=== PATIENT | female | born 1995 | race Caucasian/White ===

== ENCOUNTER 2018-03-16 12:26 | Observation (INO) ==
--- NOTE | 2018-03-16 13:32 | Emergency Department Note ---
Disposition Clinical Impression: Vaginal bleeding Post-operative complication Qualifiers: Surgical complication system/body Area: genitourinary Surgical complication type: unspecified Procedure type: genitourinary Qualified Code(s): N99.89 - Other postprocedural complications and disorders of genitourinary system Disposition: Admitted As Inpatient Condition: Good Time of Disposition: 13:31 General Adult HPI - General Chief complaint: ED Urogenital-Female Stated complaint: Vaginal bleeding S/P tubal ligation Time Seen by Provider: 03/16/18 13:03 Source: patient Limitations: no limitations - History of Present Illness Pain Scale: 0 - Related Data Home Medications Medication Instructions Recorded Confirmed ARIPiprazole [Abilify] 2 mg PO DAILY 03/08/18 03/16/18 FLUoxetine HCl [PROzac] 20 mg PO DAILY 03/08/18 03/16/18 Allergies Allergy/AdvReac Type Severity Reaction Status Date / Time No Known Allergies Allergy Verified 03/16/18 12:37 Past Medical History - Past Medical History Medical history: Reports: other Surgical history: Reports: other Psychiatric history: Reports: no psych history - Social History Smoking Status: Current every day smoker Smokeless Tobacco Status: No Alcohol use: Reports: none Drug use: Reports: none Physical Exam - General Limitations: no limitations General appearance: alert, in no apparent distress Course - Consultations Consultation #1: Dr. Shafer present in the ED and accepts patinet to his service. Would like liberty started on methoxyprg now Time: 13:31 Vital Signs Temperature 98.3 F 03/16/18 12:33 Pulse Rate 101 03/16/18 12:33 Respiratory Rate 16 03/16/18 12:33 Blood Pressure 126/88 03/16/18 12:33 O2 Sat by Pulse Oximetry 97 03/16/18 12:33 Temperature 98.3 F 03/16/18 12:33 Pulse Rate 78 03/16/18 13:44 Respiratory Rate 14 03/16/18 13:44 Blood Pressure 116/75 03/16/18 13:44 O2 Sat by Pulse Oximetry 100 03/16/18 13:44 Oxygen Delivery Oxygen Delivery Room Air Medical Decision Making - Lab Data Result diagrams: 03/16/18 13:52 Lab Results 03/16/18 Range/Units 13:52 WBC 8.3 (4.3-11.1) K/mcL RBC 4.37 (3.82-4.97) M/mcL Hgb 13.3 (11.5-15.4) g/dL Hct 39.4 (35.3-44.9) % MCV 90.2 (83.0-100.0) fL MCH 30.4 (28.0-33.3) pg MCHC 33.8 (31.6-35.5) g/dL RDW 12.9 (11.5-14.5) % Plt Count 203 (140-400) K/mcL MPV 11.2 (9.4-12.4) fL Immature Gran % 0.2 (0-4) % Seg Neutrophils % 61.8 % Lymphocytes % 25.1 % Monocytes % 9.2 % Eosinophils % 3.2 % Basophils % 0.5 % Neutrophils # 5.1 (1.6-8.9) K/mcL Lymphocytes # 2.1 (0.6-4.6) K/mcL Monocytes # 0.8 (0.0-1.3) K/mcL Eosinophils # 0.3 (0.0-0.6) K/mcL Basophils # 0.0 (0.0-0.2) K/mcL Attestation Statement - Attestation Attestation: I examined this patient and my medical decision-making was reviewed with the Resident Physician. I agree with the documented findings, disposition and treatment plan as described except to the extent set forth below. 22 year old female presnts to the ED withc omplaints of vagina bleeding s/p tubal ligation per Dr. Shafer and she was being evalauted at his office and he reccomended that she cometo the ED for admission to the hospital under his service. HE was at bedside during our evaluation and he would like baseline labs and methoxyprg given for therapy. I have discussed with patient the reccs for admission adn they are agreeable to plan. She has sstable vitals and is non- toxic
--- NOTE | 2018-03-16 13:52 | Emergency Department Note ---
Disposition Clinical Impression: Vaginal bleeding Post-operative complication Qualifiers: Surgical complication system/body Area: genitourinary Surgical complication type: unspecified Procedure type: genitourinary Qualified Code(s): N99.89 - Other postprocedural complications and disorders of genitourinary system Disposition: Admitted As Inpatient Condition: Good Referrals: Mona Andino [employer] [Primary Care Provider] - Forms: ED Satisfaction Letter Time of Disposition: 13:53 Female Urogenital HPI - General Chief complaint: ED Urogenital-Female Stated complaint: Vaginal bleeding S/P tubal ligation Time Seen by Provider: 03/16/18 13:03 Source: patient Limitations: no limitations Nursing Notes Reviewed: Yes Vital Signs Reviewed: Yes - History of Present Illness HPI Narrative: 22-year-old female presented to the emergency department for vaginal bleeding. Patient one week ago had tubal ligation done by MEDICAL MANAGER here. She called the office and was told to come emergency department for evaluation. Patient stated that she filled 1 pad and 10 minutes of any tampon in 5 minutes and came to the emergency department. Started all of a sudden. Patient's I have any abdominal pain any nausea vomiting or any fevers. - Related Data Home Medications Medication Instructions Recorded Confirmed ARIPiprazole [Abilify] 2 mg PO DAILY 03/08/18 03/16/18 FLUoxetine HCl [PROzac] 20 mg PO DAILY 03/08/18 03/16/18 Allergies Allergy/AdvReac Type Severity Reaction Status Date / Time No Known Allergies Allergy Verified 03/16/18 12:37 All systems ED: reviewed and negative except as stated. Review of Systems: As Per HPI Constitutional: Denies: fever, chills, weakness, weight change Eyes: Denies: eye pain, eye discharge, vision change ENT ED: Denies: ear pain, throat pain, dental pain, hearing loss, epistaxis, congestion, dysphagia Cardiovascular: Reports: as per HPI. Denies: chest pain, palpitations Respiratory: Denies: cough, dyspnea, wheezes, hemoptysis, stridor Gastrointestinal: Denies: abdominal pain, nausea, vomiting, diarrhea, constipation, hematemesis, melena, hematochezia Genitourinary: Denies: dysuria, frequency, hematuria, discharge Musculoskeletal: Denies: back pain, neck pain, arthralgia, myalgia Integumentary: Denies: rash, abrasion, lesions Neurological: Denies: headache, weakness, numbness, paresthesias, confusion, abnormal gait, vertigo Psychiatric: Denies: anxiety, depression, suicidal thoughts, homicidal thoughts , auditory hallucinations, visual hallucinations Endocrine: Denies: fatigue Hematological/Lymphatic: Denies: easy bleeding, easy bruising Allergic/Immunologic: Denies: facial swelling, urticaria Past Medical History - Past Medical History Attestation: Yes The following information was validated with the patient. Source: patient Medical history: Reports: other Surgical history: Reports: other Psychiatric history: Reports: no psych history - Social History Smoking Status: Current every day smoker Smokeless Tobacco Status: No Alcohol use: Reports: none Drug use: Reports: none Physical Exam - General Limitations: no limitations General appearance: alert, in no apparent distress - Head Head exam: atraumatic, normocephalic, normal inspection - Eye Eye exam: Present: normal appearance, PERRL, EOMI - ENT ENT exam: normal exam, normal oropharynx, mucous membranes moist - Neck Neck exam: Present: normal inspection, full ROM, trachea midline - Chest Chest inspection: Present: normal inspection, symmetric chest wall rise - Respiratory Respiratory exam: Present: normal lung sounds bilaterally - Cardiovascular Cardiovascular exam: Present: regular rate, normal rhythm, normal heart sounds - Abdominal Exam Abdominal exam: Present: soft, Non-Tender. Absent: tenderness, distention, guarding, rebound, rigidity - Female External Exam: Present: other ( exam done by on-call MEDICAL MANAGER Dr. torres) - Back Exam Back exam: Present: normal inspection, full ROM. Absent: tenderness - Neurological Exam Neurological exam: Present: alert, oriented X3 - Skin Skin exam: Present: warm, dry, intact, normal color Course Course Narrative: Will get CBC and basic labs will consult MEDICAL MANAGER for recommendations. Vital Signs Temperature 98.3 F 03/16/18 12:33 Pulse Rate 101 03/16/18 12:33 Respiratory Rate 16 03/16/18 12:33 Blood Pressure 126/88 03/16/18 12:33 O2 Sat by Pulse Oximetry 97 03/16/18 12:33 Temperature 98.3 F 03/16/18 12:33 Pulse Rate 78 03/16/18 13:44 Respiratory Rate 14 03/16/18 13:44 Blood Pressure 116/75 03/16/18 13:44 O2 Sat by Pulse Oximetry 100 03/16/18 13:44 Oxygen Delivery Oxygen Delivery Room Air Urogenital-Female - MDM Narrative Medical decision making narrative: Spoke with on-call MEDICAL MANAGER at approximately 1345 who came to bedside and did do a vaginal exam and stated he would admit the patient to their service. He does want a basic labs done and said they can go to the opiate MEDICAL MANAGER service. Patient is stable at this time. She is still currently bleeding but stable. - Medical Records Medical records reviewed: Yes I reviewed the patient's medical records. - Lab Data Lab results reviewed: Yes I reviewed the patient's lab results.
[2018-03-16 14:11] LABS: Basophils % 0.5 %; Eosinophils # 0.3 K/mcL (0.0-0.6); Eosinophils % 3.2 %; Hematocrit 39.4 % (35.3-44.9); Hemoglobin 13.3 g/dL (11.5-15.4); Immature Granulocytes % 0.2 % (0-4); Lymphocytes # 2.1 K/mcL (0.6-4.6); Lymphocytes % 25.1 %; Mean Corpuscular HGB Conc 33.8 g/dL (31.6-35.5); Mean Corpuscular Hemoglobin 30.4 pg (28.0-33.3); Mean Corpuscular Volume 90.2 fL (83.0-100.0); Mean Platelet Volume 11.2 fL (9.4-12.4); Monocytes # 0.8 K/mcL (0.0-1.3); Monocytes % 9.2 %; Neutrophils # 5.1 K/mcL (1.6-8.9); Platelet Count 203 K/mcL (140-400); Red Blood Count 4.37 M/mcL (3.82-4.97); Red Cell Distribution Width 12.9 % (11.5-14.5); Segmented Neutrophils % 61.8 %
[2018-03-16 14:20] LABS: INR 1.2; Prothrombin Time 13.7 Seconds (9.4-12.1)
[2018-03-16 14:23] LABS: Activated Partial Thrombo Time 32.7 Seconds (26.0-36.0)
--- NOTE | 2018-03-16 14:25 | OB/GYN Consult Note ---
Date of Encounter: 03/23/18 Time of Encounter: 14:24 Assessment and Plan (1) Vaginal bleeding Status: Acute pelvic exam revealed approx 30cc of clot in the vagina, clots were expelled and there was no active bleeding noted from the cervix, I will start the patient on Medroxyprogesterone 20mg TID and admit her for observation, her vitals and labs are stable, no surgical interventions needed at this time. History of Present Illness Consult date: 03/16/18 Requesting physician: Veronica Bansal Reason for consult: menorrhagia Chief complaint: vaginal bleeding History of present illness: Mrs Ferreira is a 22 y/o who presents to the ED with vaginal bleeding. She is s/p bilateral salpingectomy and endometrial abaltion 1 week ago. She reports vaginal bleeding that started early this AM when she got up. She reports changing multiple pads withing the last few hrs. She called the office and was told to come to the ED. SHe does not report CP, SOB, dizziness, pelvic pain, urologic or vaginal symptoms. There were no complications with her procedure. Past Med Surg Social Fam HX - Past Medical History Medical history: other Additional medical history: depression. PT STATES SHE STARTED SMOKING CIGARETTES @19 YRS OF AGE Psychiatric history: no psych history - Past Surgical History Surgical History: other Additional surgical history: tonsils-age 3, diagnostic laparoscopy iud removal- 2017. 03/08/18 DX LAP DILCIA SALPINGECTOMY/HYSTEROSCOPY/D&C/ENDOMETRIAL ALBATION, Removal of ovarian tubes. - Social History Smoking Status: Current every day smoker Smokeless Tobacco Status: No Alcohol use: none Drug use: none Medications and Allergies ARIPiprazole [Abilify] 2 mg PO DAILY 03/08/18 [History] FLUoxetine HCl [PROzac] 20 mg PO DAILY 03/08/18 [History] Ciprofloxacin [Cipro] 500 mg PO BID #14 tablet 03/22/18 [Rx] Sulfamethoxazole/Trimeth DS [Bactrim DS] 1 each PO BID #14 tablet 03/22/18 [Rx] 3 Allergy/AdvReac Type Severity Reaction Status Date / Time No Known Allergies Allergy Verified 03/22/18 09:27 Review of Systems All Systems: reviewed and no additional remarkable complaints except as stated Exam - Vital Signs Vital signs: Initial Vital Signs Temp Pulse Resp BP Pulse Ox 98.3 F 101 16 126/88 97 03/16/18 12:33 03/16/18 12:33 03/16/18 12:33 03/16/18 12:33 03/16/18 12:33 - Constitutional Constitutional: thin - HEENT HEENT: PERRL - Neck Neck exam: full ROM - Lungs Respiratory exam: CTAB - Cardiovascular Cardiovascular exam: RRR - Extremities Extremities exam: normal inspection Results Result Diagrams: 03/16/18 13:52 03/16/18 13:52 Abnormal lab results PT 13.7 Seconds (9.4-12.1) H 03/16/18 13:52 All other labs normal. Consult Discharge Plan - Plan Referrals: Mona Andino, [employer] [Primary Care Provider] -
[2018-03-16 14:30] LABS: Alanine Aminotransferase 11 Units/L (7-52); Albumin 4.5 g/dL (3.5-5.7); Albumin/Globulin Ratio 1.8 (1.1-2.2); Alkaline Phosphatase 52 Units/L (34-104); Aspartate Amino Transferase 13 Units/L (13-39); BUN/Creatinine Ratio 23 (6-26); Bilirubin,Total 1.1 mg/dL (0.3-1.0); Blood Urea Nitrogen 16 mg/dL (6-20); Calcium 9.8 mg/dL (8.6-10.3); Carbon Dioxide 29 mEq/L (23-29); Chloride 105 mEq/L (98-107); Globulin 2.5 g/dL (2.4-3.5); Glucose 86 mg/dL (70-105); Osmolality,Calculated 288 (280-300); Potassium 3.6 mEq/L (3.5-5.1); Sodium 139 mEq/L (136-145); eGFR For Non-African Americans > 60 (> 60)
[2018-03-16] MEDS ORDERED: Ringers Solution, Lactated 1,000 ML IVC SCH (15:30)
--- NOTE | 2018-03-17 08:00 | Discharge Summary ---
Date of Encounter: 03/17/18 Time of Encounter: 07:56 - Discharge Diagnosis (1) Vaginal bleeding Priority: Primary Status: Acute Comments: 22 y/o with resolved vaginal bleeding, I examined her and her bleeding has subsided will discharge home with medroxyprogesterone follow up outpt - Discharge Medications Home Medications: ARIPiprazole [Abilify] 2 mg PO DAILY 03/08/18 [History] FLUoxetine HCl [PROzac] 20 mg PO DAILY 03/08/18 [History] Allergies/Adverse Reactions: 3 Allergy/AdvReac Type Severity Reaction Status Date / Time No Known Allergies Allergy Verified 03/16/18 12:37 Data - Impressions ITS Impressions Abdomen/Pelvis/Transvag US 03/16/18 15:18 IMPRESSION: 1. Scattered calcifications and irregular cystic spaces within the endometrium. These findings are nonspecific but may be related to prior endometrial procedures. 2. Small amount of fluid in the low pelvis, which is most likely physiologic. D/ / 03/16/2018 17:14:03 Paul Goodrich MD / [facility] Interpreting Provider: Paul Goodrich MD Date of admission: 03/16/18 13:56 Primary care physician: Mona Andino CNP - Patient Status Disposition: Home, Self-Care Condition: Good Functional capacity at discharge: independent ambulation - Discharge Instructions Follow Up With: Mona Andino CNP [Primary Care Provider] - Hospital Course FICTION AND NONFICTION PROSE WRITER Time Attestation: Total time spent providing and/or coordinating discharge services: Exam - Constitutional Vitals: Temp Pulse Resp BP Pulse Ox 97.7 F 87 14 102/64 99 03/17/18 04:04 03/17/18 04:04 03/17/18 04:04 03/17/18 04:04 03/17/18 04:04 General appearance IM: A&O X 2 - Respiratory Respiratory exam: Present: CTAB - Cardiovascular Cardiovascular exam IM: Present: RRR - GI/Abdominal GI/Abdominal exam IM: normal bowel sounds
[2018-03-17] MEDS ORDERED: FLUoxetine 20 MG CAPSULE PO SCH (09:00)
[2018-03-17] MEDS ORDERED: ARIPiprazole 2 MG TABLET PO SCH (09:00)
[2018-03-17 09:59] VITALS: BP 102/66
== END 2018-03-17 10:07 | disposition home or self-care (01) ==
LOC: 1NENUPED 12:26 → EMEROOARM 12:26 → 1NENUPED 14:36
PROVIDERS: ADMIT Student in an Organized Health Care Education/Training Program; ATTEND Student in an Organized Health Care Education/Training Program